=== PATIENT | female | born 1950 | race Caucasian/White ===

== ENCOUNTER 2017-08-30 12:15 | Emergency (ER) | payer MEDICARE, SELFPAY ==
[2017-08-30 12:17] VITALS: BP 156/94; PULSE 89; RESP 16; TEMP 36.3; O2SAT 95; BMI 37.3
--- NOTE | 2017-08-30 12:29 | EKG12_ITS ---
Test Reason : SOB Blood Pressure : / mmHG Vent. Rate : 082 BPM Atrial Rate : 082 BPM P-R Int : 148 ms QRS Dur : 088 ms QT Int : 390 ms P-R-T Axes : 049 030 078 degrees QTc Int : 455 ms Normal sinus rhythm Normal ECG Confirmed by YANET DORANTES MD ([id number]), newspaper or periodical editor XOCHITL SCHULER ([id number]) on 09/03/2017 3:51:04 PM Referred By: GRACE Confirmed By:YANET DORANTES MD
--- NOTE | 2017-08-30 12:41 | ED.DCSUM_ITS ---
- ER Visit Summary Date of Service: 08/30/17 Chief Complaint: [] Sick for a week vomiting coughing now just coughing partially History of Present Illness: The patient is a 67 F [] vomiting and coughing about a week ago the vomiting has stopped but she is persistent having a harsh dry cough and rhinorrhea she has asthma, she has been using her Symbicort but not her rescue inhaler. She has no history of RI PE or DVT she presents complaining of the harsh nature of the cough and fatigue, she has not had a flu vaccination she has not been tested for the flu her bowel bladder habits are otherwise unremarkable. Her diabetes is well-controlled she was able to eat today without difficulty she noticed occasional diarrhea Physical Examination: [] She has a rhinorrhea and a harsh cough she is in no distress otherwise her lungs reveal wheezing all areas the heart tones are distant abdomen is obese nontender upper lower extremities unremarkable neurologically she is awake moving all 4 Test Results: [] Emergency Department Course and Treatment: [] Evaluation revealed, generally unremarkable chest x-ray and labs EKG see those reports. On reevaluation she is resting much more comfortably at this time she feels stable for discharge, she will be given a Proventil inhaler to use in addition to her Symbicort, she is given Tylenol 3 to use at bedtime for rest Mucinex use every 12 hours and she will follow with her family doctor return for change in symptoms, please note her flu screen was negative but we did discuss the concept that she could still have the flu as the flu screen was not very sensitive Treatment Plan: [] Disposition: [] Home stable Impression: [] URI with harsh cough This note was generated with [employer], IP dictation software. It may contain incorrect words, spelling, and punctuation that were not noted in review of the chart prior to signing ED Disposition - Plan for ED Patient: Chief Complaint: Cough Referrals: Yoan Cavanaugh Chi, MD [Primary Care Provider] -
[2017-08-30] MEDS: Ipratropium/Albuterol Sulfate 3 ML AMPUL.NEB INHALATION (12:47)
[2017-08-30 12:49] VITALS: PULSE 90; RESP 16
--- NOTE | 2017-08-30 12:50 | RAD_ITS ---
STUDY: X-RAY CHEST REASON FOR EXAM: Female, 67 years old. 10 day history of generalized illness. TECHNIQUE: Single AP portable view of the chest. COMPARISON: Comparison is made with prior study dated July 24, 2013. FINDINGS: EKG electrodes are seen. Stable mild degree of increased markings at the lung bases suggestive of the linear scarring. Hyperinflation. There is no demonstrated pleural abnormality. Normal size heart. Normal mediastinum and zachariah. Normal visualized pulmonary arteries. There is atherosclerotic tortuosity of the aortic arch and descending thoracic aorta. There are diffuse degenerative changes of the visualized thoracic spine. Normal visualized ribs, clavicles, and shoulders. There is no demonstrated abnormality of the visualized soft tissue structures of the upper abdomen. RAD/Chest 1 View (Portable) IMPRESSION: Stable increased markings at the lung bases suggestive of scarring. Electronically Signed: Yuval Amador MD at 13:41 EST Tel [phone], Service support ,
[2017-08-30 12:52] LABS: Absolute Lymphocyte Count 1.57 X10^3/ul (0.83-4.51); Absolute Neutrophil Count 3.1 X10^3/uL (2.0-7.7); Basophil# 0.01 X10^3/uL; Basophil% 0.2 % (0-1); Eosinophil# 0.11 X10^3/uL; Eosinophils% 2.2 % (0-5); Hematocrit 42.3 % (37-47); Hemoglobin 13.4 g/dl (12.0-15.0); Lymphocyte # 1.57 X10^3/ul (4.0); Lymphocyte % 30.9 % (19-41); Mean Corp Hgb Conc 31.7 g/gl (32-36); Mean Corpuscular Hgb 28.6 pg (27.0-32.0); Mean Corpuscular Volume 90.4 fL (81-99); Mean Platelet Vol. 9.4 fl (6.2-12.0); Monocyte# 0.29 X10^3/uL; Monocyte% 5.7 % (0-10); Neutrophil # 3.08 X10^3/uL (2.7-7.7); Neutrophil % 60.6 % (47-70); Platelet Count 246 K/mm3 (150-450); RBC Distribution Width CV 14.1 % (11.6-14.6); RBC Distribution Width SD 46.3 fl (35.1-43.9); Red Blood Count 4.68 M/mm3 (4.2-5.4); White Blood Count 5.1 K/mm3 (4.4-11.0)
[2017-08-30 12:55] LABS: POSITIVE COUNT NO; POSITIVE DIFFERENTIAL NO; POSITIVE MORPHOLOGY NO
[2017-08-30 12:59] VITALS: BP 142/79; PULSE 84; RESP 24; O2SAT 95
[2017-08-30 13:07] LABS: Anion Gap 9 (5-15); BUN 12 mg/dL (7-18); BUN/Creat Ratio 15.5 RATIO (10-20); Calcium,Total 9.4 mg/dL (8.5-10.1); Chloride 103 mmol/L (98-107); Creatinine, Serum 0.78 mg/dL (0.55-1.02); EST Glomerular Filtration Rate 79 mL/min (>60); Est Glom Filt Rate - Afr Amer 96 mL/min (>60); Estimated Creatinine Clearance 67.31 ml/min; Glucose 178 mg/dL (70-110); Potassium 3.9 mmol/L (3.5-5.1); Sodium Level 140 mmol/L (136-145)
[2017-08-30 13:23] LABS: BNP,B-Type NATRIURETIC PEPTIDE 9.4 pg/mL (0-100)
--- NOTE | 2017-08-30 13:55 | ED.DEP ---
ED Disposition - Plan for ED Patient: Chief Complaint: Cough Instructions: ED Flu, ED Bronchitis Asthmatic Prescriptions: Albuterol Inhaler [Ventolin Hfa] 1 - 2 puff INHALATION Q4H PRN PRN #1 inhaler PRN Reason: Wheezing Guaifenesin/Dextromethorphan [Mucinex Dm ER 1,200-60 mg Tab] 1 ea PO BID #14 tab.er.12h Acetaminophen/Codeine #3 [Tylenol #3 Tablet] 1 - 2 tab PO Q6H PRN #12 tab PRN Reason: Pain Referrals: Yoan Cavanaugh Chi, MD [Primary Care Provider] -
[2017-08-30 14:12] VITALS: BP 143/75; PULSE 84; RESP 20; O2SAT 94
== END 2017-08-30 14:15 | disposition home or self-care (01) ==
PROVIDERS: Emergency Provider Emergency Medicine; Family Provider Family Medicine Geriatric Medicine; PCP Family Medicine Geriatric Medicine
DX: J06.9 Acute upper respiratory infection, unspecified (principal); R05 Cough; J44.9 Chronic obstructive pulmonary disease, unspecified; R06.2 Wheezing; E11.9 Type 2 diabetes mellitus without complications; Z79.84 Long term (current) use of oral hypoglycemic drugs
CPT/HCPCS: 71045; 80048; 83880; 84484; 85025; 87804; 93005; 94640; 99284; A4216

== ENCOUNTER → 2017-10-16 13:09 | Outpatient (CLI) | payer MEDICARE, SELFPAY ==
--- NOTE | 2017-10-16 13:11 | HPBD_ITS ---
STUDY: DUAL ENERGY X-RAY ABSORPTIOMETRY / DXA REASON FOR EXAM: Female, 67 years old. The patient is postmenopausal. Loss of height. TECHNIQUE: Bone Mineral Density (BMD) measurements of lumbar spine and right hip were obtained. COMPARISON: Comparison is made with prior study dated March 03, 2014. FINDINGS: Lumbar Spine (L1-L4): g/cm2 (1.143) / T-score (-0.2) / Z-score (1.4) Findings are suggestive of normal bone density with a low fracture risk. Right Femur Total: g/cm2 (1.173) / T-score (1.3) / Z-score (2.5) Right Femoral Neck: g/cm2 (1.042) / T-score (0.0) / Z-score (1.5) The T-Scores on the most recent prior examination were: Lumbar Spine (L1-L4): There has been worsening of bone density since the previous examination. Right Femur Total: which represents a worsening of 1.8%. HPBD/Dexa Bone Density Study (HP) IMPRESSION: The patient is considered normal as outlined below according to World [employer] Organization (WHO) criteria with a low fracture risk. There has been worsening of bone density since the previous examination. Reference Information: The T-score is the number of standard deviations above or below the standard which is normal for young adults at their peak bone mineral density. The World Health Organization (WHO) interprets the T-scores as follows: Above -1 Normal bone density Between -1 and -2.5 Osteopenia Equal to / or below -2.5 Osteoporosis As a practical clinical guideline, osteopenia may be graded as follows: Mild -1 through -1.5 Moderate -1.6 through -2.0 Severe -2.1 through -2.4 The Z-score is the number of standard deviations above or below age-matched controls. A Z-score of less than -1.5 would be considered abnormal. References: 1. NIH Osteoporosis and Related Bone Diseases http://www.osteo.org 2. International Society for Clinical Densitometry http://www.iscd.org 3. National Osteoporosis Foundation http://www.nof.org Electronically Signed: Yuval Amador MD at 14:30 EDT Tel [phone], Service support ,
--- NOTE | 2017-10-16 13:11 | HPBI_ITS ---
MAMMOGRAPHY - BILATERAL SCREENING REASON FOR EXAM: Female, 67 years old. Routine annual screening examination. PERTINENT HISTORY: Grandmother with breast cancer. Remote left excisional breast biopsies. TECHNIQUE: Digital bilateral breast valente (3D mammographic acquisition) in the CC and MLO projections. 2-D mediolateral oblique (MLO) and craniocaudad (CC) views of both breasts were obtained. CAD: Full Field Digital Mammography with Computer Added Detection was performed. COMPARISON: Comparison is made with prior examination dated March 29, 2016 and March 03, 2014. FINDINGS: Breast Composition: There are scattered areas of fibroglandular density. There are no dominant masses or suspicious calcifications. No other significant abnormalities are identified. There has been no significant change since the prior study. HPBI/SCREENING MAMM (CAD), BILAT IMPRESSION: Stable bilateral screening mammogram. Yearly follow-up mammogram recommended. (A) ASSESSMENT CATEGORY: BIRADS Category 1: Negative. A letter regarding these results will be sent to the patient by the facility within 30 days. Approximately 10% of breast cancers are not detected by mammography. A normal mammogram should not delay biopsy of a clinically suspicious abnormality. [id number] Electronically Signed: Yuval Amador MD at 15:16 EDT Tel [phone], Service support ,
== END ==
PROVIDERS: Family Provider Family Medicine Geriatric Medicine; PCP Family Medicine Geriatric Medicine; Visit Provider Family Medicine Geriatric Medicine
DX: Z78.0 Asymptomatic menopausal state (principal); Z12.31 Encounter for screening mammogram for malignant neoplasm of breast
CPT/HCPCS: 77063; 77067; 77080

== ENCOUNTER → 2018-09-13 10:58 | Outpatient (CLI) | payer MEDICARE, SELFPAY ==
[2018-09-13 12:46] LABS: Absolute Lymphocyte Count 1.81 X10^3/ul (0.83-4.51); Absolute Neutrophil Count 3.8 X10^3/uL (2.0-7.7); Basophil# 0.03 X10^3/uL; Basophil% 0.5 % (0-1); Eosinophil# 0.11 X10^3/uL; Eosinophils% 1.8 % (0-5); Hematocrit 41.8 % (37-47); Hemoglobin 13.2 g/dl (12.0-15.0); Lymphocyte # 1.81 X10^3/ul (4.0); Lymphocyte % 29.3 % (19-41); Mean Corp Hgb Conc 31.6 g/gl (32-36); Mean Corpuscular Hgb 29.3 pg (27.0-32.0); Mean Corpuscular Volume 92.9 fL (81-99); Mean Platelet Vol. 9.6 fl (6.2-12.0); Monocyte# 0.41 X10^3/uL; Monocyte% 6.6 % (0-10); Neutrophil # 3.81 X10^3/uL (2.7-7.7); Neutrophil % 61.6 % (47-70); Platelet Count 266 K/mm3 (150-450); RBC Distribution Width CV 13.8 % (11.6-14.6); White Blood Count 6.2 K/mm3 (4.4-11.0)
[2018-09-13 12:47] LABS: POSITIVE COUNT NO; POSITIVE DIFFERENTIAL NO; POSITIVE MORPHOLOGY NO
[2018-09-13 13:01] LABS: Vitamin D,25 Hydroxy 34.4 ng/mL (29.95-100.01)
[2018-09-13 13:08] LABS: ALB/GLOB Ratio 0.9 RATIO (0.9-2.4); AST(SGOT) 17 U/L (15-37); Alanine Aminotransfer ALT/SGPT 24 U/L (13-56); Albumin, Serum 3.6 g/dL (3.2-5.0); Alkaline Phosphatase 79 U/L (45-117); Anion Gap 9 (5-15); BUN 16 mg/dL (7-18); BUN/Creat Ratio 20.2 RATIO (10-20); Calcium,Total 9.1 mg/dL (8.5-10.1); Chloride 105 mmol/L (98-107); Cholesterol 145 mg/dL (200); Creatinine, Serum 0.79 mg/dL (0.55-1.02); EST Glomerular Filtration Rate 77 mL/min (>60); Est Glom Filt Rate - Afr Amer 93 mL/min (>60); Globulin 4.1 g/dL (2.2-4.2); Glucose 124 mg/dL (74-106); High Density Lipoprotein 49 mg/dL; Potassium 4.2 mmol/L (3.5-5.1); Protein, Total 7.7 g/dL (6.4-8.2); Sodium Level 140 mmol/L (136-145); Thyroid Stim Hormone (TSH) 1.63 uIU/mL (0.358-3.74); Triglycerides 113 mg/dL; Uric Acid 5.8 mg/dL (2.6-6.0); Very Low Density Lipoprotein 23 mg/dL (5-40)
== END ==
PROVIDERS: Family Provider Family Medicine Geriatric Medicine; PCP Family Medicine Geriatric Medicine; Visit Provider Family Medicine Geriatric Medicine
DX: E11.9 Type 2 diabetes mellitus without complications (principal); E55.9 Vitamin D deficiency, unspecified; E78.49 Other hyperlipidemia; I10 Essential (primary) hypertension; M10.9 Gout, unspecified
CPT/HCPCS: 36415; 80053; 80061; 82306; 84443; 84550; 85025

== ENCOUNTER → 2019-04-21 14:31 | Outpatient (CLI) | payer MEDICARE, SELFPAY ==
--- NOTE | 2019-04-21 14:39 | BI_ITS ---
MAMMOGRAPHY - BILATERAL SCREENING REASON FOR EXAM: Female, 68 years old. Routine annual screening examination. PERTINENT HISTORY: Grandmother with breast cancer. Remote left excisional breast biopsies. TECHNIQUE: Digital bilateral breast joe (3D mammographic acquisition) in the CC and MLO projections. 2-D mediolateral oblique (MLO) and craniocaudad (CC) views of both breasts were obtained. CAD: Full Field Digital Mammography with Computer Added Detection was performed. COMPARISON: Comparison is made with prior study dated October 16, 2017 and March 29, 2016. FINDINGS: Breast Composition: There are scattered areas of fibroglandular density. There are no dominant masses or suspicious calcifications. Stable small benign-appearing bilateral axillary lymph nodes. No other significant abnormalities are identified. There has been no significant change since the prior study. BI/SCREEN MAMM (CAD) W/JOE BILAT IMPRESSION: Stable bilateral screening mammogram. Yearly follow-up mammogram recommended. (A) ASSESSMENT CATEGORY: BIRADS Category 2: Benign. A letter regarding these results will be sent to the patient by the facility within 30 days. Approximately 10% of breast cancers are not detected by mammography. A normal mammogram should not delay biopsy of a clinically suspicious abnormality. [id number] Electronically Signed: Yuval Amador, at 8:21 EDT , Service support ,
== END ==
PROVIDERS: Family Provider Family Medicine Geriatric Medicine; PCP Family Medicine Geriatric Medicine; Referring Provider Family Medicine Geriatric Medicine; Visit Provider Family Medicine Geriatric Medicine
DX: Z12.31 Encounter for screening mammogram for malignant neoplasm of breast (principal); Z80.3 Family history of malignant neoplasm of breast
CPT/HCPCS: 77063; 77067

== ENCOUNTER → 2020-03-24 14:18 | Outpatient (CLI) | payer MEDICARE, SELFPAY ==
[2020-03-25 07:29] LABS: SARS-COV-2 TOTAL ABS Nonreactive (Nonreactive)
== END ==
PROVIDERS: PCP Family Medicine Geriatric Medicine; Referring Provider Family Medicine Geriatric Medicine; Visit Provider Family Medicine Geriatric Medicine
DX: R05 Cough (principal)
CPT/HCPCS: 36415; 86769

== ENCOUNTER → 2020-09-23 15:15 | Outpatient (CLI) | payer MEDICARE, SELFPAY | PROVIDERS: PCP Family Medicine Geriatric Medicine; Referring Provider Family Medicine Geriatric Medicine; Visit Provider Family Medicine Geriatric Medicine | DX: R68.83 Chills (without fever) (principal) | CPT/HCPCS: 87635; C9803; U0005; U0003 ==

== ENCOUNTER 2020-10-12 11:42 | Outpatient (RCR) | payer MEDICARE, SELFPAY ==
[2020-10-12] MEDS: COVID-19 VACC, MRNA(PFIZER)/PF 30 MCG/0.3 ML SYRINGE IM (14:29)
[2020-11-02] MEDS: COVID-19 VACC, MRNA(PFIZER)/PF 30 MCG/0.3 ML SYRINGE IM (14:46)
== END 2021-01-04 23:59 ==
LOC: IMMUN 11:42
PROVIDERS: PCP Family Medicine Geriatric Medicine; Visit Provider Family Medicine
DX: Z23 Encounter for immunization (principal)
CPT/HCPCS: 0001A; 0002A; 91300

== ENCOUNTER → 2021-04-13 12:11 | Outpatient (CLI) | payer MEDICARE, SELFPAY ==
--- NOTE | 2021-04-13 12:13 | BI_ITS ---
MAMMOGRAPHY - BILATERAL SCREENING REASON FOR EXAM: Female, 70 years old. Routine annual screening examination. PERTINENT HISTORY: Grandmother with breast cancer. TECHNIQUE: Digital bilateral breast joe (3D mammographic acquisition) in the CC and MLO projections. 2-D mediolateral oblique (MLO) and craniocaudad (CC) views of both breasts were obtained. CAD: Full Field Digital Mammography with Computer Added Detection was performed. COMPARISON: Comparison is made with prior study dated 04/21/2019 and 10/16/2017. FINDINGS: Breast Composition: There are scattered areas of fibroglandular density. There are no dominant masses or suspicious calcifications. Stable small benign appearing bilateral axillary No other significant abnormalities are identified. There has been no significant change since the prior study. BI/SCRN MAMM (CAD)W/JOE BILAT IMPRESSION: Stable bilateral screening mammogram. Yearly follow-up mammogram recommended. (A) ASSESSMENT CATEGORY: BIRADS Category 2: Benign. A letter regarding these results will be sent to the patient by the facility within 30 days. Approximately 10% of breast cancers are not detected by mammography. A normal mammogram should not delay biopsy of a clinically suspicious abnormality. [id number] Electronically Signed: Yuval Amador MD at 13:00 EDT , Service support ,
== END ==
PROVIDERS: PCP Family Medicine Geriatric Medicine; Referring Provider Family Medicine Geriatric Medicine; Visit Provider Family Medicine Geriatric Medicine
DX: Z12.31 Encounter for screening mammogram for malignant neoplasm of breast (principal)
CPT/HCPCS: 77063; 77067

== ENCOUNTER 2021-09-28 14:37 | Outpatient (CLI) | payer MEDICARE, SELFPAY ==
--- NOTE | 2021-09-28 14:41 | RAD_ITS ---
STUDY: X-RAY - PELVIS AND RIGHT HIP REASON FOR EXAM: Female, 71 years old. HIP PAIN TECHNIQUE: XR Hip Unilateral with Pelvis when performed; 2-3 Views COMPARISON: None. FINDINGS: There is a non-specific bowel gas pattern. Normal visualized soft tissue structures. There are degenerative changes of the lumbar spine. Normal bilateral iliac wings, sacroiliac joints and visualized sacrum. Normal bilateral superior and inferior pubic rami. Normal pubic symphysis. Normal bilateral ischial tuberosities. RIGHT: There are osteoarthritic changes of the femoral head with marginal osteophyte formation. There is cortical sclerosis with sub-cortical cyst formation of the acetabulum. There is moderate articular joint space narrowing of the hip. LEFT: Total left hip arthroplasty. RAD/HIP, UNI W/ Pelvis 2-3 Views IMPRESSION: Degenerative findings of the right hip. Electronically Signed: Suresh Cantu MD at 18:46 EST ,
== END 2021-09-28 23:59 | disposition home or self-care (01) ==
LOC: RAD 14:40
PROVIDERS: PCP Family Medicine Geriatric Medicine; Referring Provider Family Medicine Geriatric Medicine; Visit Provider Family Medicine Geriatric Medicine
DX: M16.11 Unilateral primary osteoarthritis, right hip (principal)
CPT/HCPCS: 73502

== ENCOUNTER → 2023-06-11 | Outpatient (CLI) | payer MEDICARE, SELFPAY ==
--- NOTE | 2023-06-11 14:43 | BI_ITS ---
MAMMOGRAPHY - BILATERAL SCREENING REASON FOR EXAM: Female, 72 years old. Routine annual screening examination. PERTINENT HISTORY: Grandmother with breast cancer. Prior excisional left breast biopsy. TECHNIQUE: Digital bilateral breast joe (3D mammographic acquisition) in the CC and MLO projections. 2-D mediolateral oblique (MLO) and craniocaudad (CC) views of both breasts were obtained. CAD: Full Field Digital Mammography with Computer Added Detection was performed. COMPARISON: Comparison is made with prior study July 13, 2021 and April 21, 2019. FINDINGS: Breast Composition: There are scattered areas of fibroglandular density. There are no dominant masses or suspicious calcifications. Stable small benign appearing bilateral axillary lymph nodes. No other significant abnormalities are identified. There has been no significant change since the prior study. BI/SCRN MAMM (CAD)W/JOE BILAT IMPRESSION: Stable bilateral screening mammogram. Yearly follow-up mammogram recommended. (A) ASSESSMENT CATEGORY: BIRADS Category 2: Benign. A letter regarding these results will be sent to the patient by the facility within 30 days. Approximately 10% of breast cancers are not detected by mammography. A normal mammogram should not delay biopsy of a clinically suspicious abnormality. [id number] Electronically Signed: Yuval Amador MD at 15:30 EST ,
== END | disposition home or self-care (01) ==
PROVIDERS: PCP Family Medicine Geriatric Medicine; Referring Provider Family Medicine Geriatric Medicine; Visit Provider Family Medicine Geriatric Medicine
DX: Z12.31 Encounter for screening mammogram for malignant neoplasm of breast (principal)
CPT/HCPCS: 77063; 77067

== ENCOUNTER 2023-08-29 17:30 | Emergency (ER) | payer MEDICARE, SELFPAY ==
[2023-08-29 17:33] VITALS: BP 131/69; PULSE 90; RESP 20; TEMP 36.9; O2SAT 95; BMI 33.0
--- NOTE | 2023-08-29 18:49 | EDS_ITS ---
HPI History of Present Illness Chief Complaint: General Illness Informant: patient and spouse/S.O. Narrative Narrative: Presents to the ED after discussing with nursing at her PCP office. Apparently had mechanical fall 17 days ago seen at outside hospital formerly [facility] states had head scan had stitches. She called about the stitches and was told she need to go ER to get it taken out as there is no upcoming appointments in the PCP office. In addition complains of congestion for the past 3 days had a fever of 102. Mild sore throat. No headaches or myalgias. No urinary symptoms. She also states since the fall 17 days with developed upper back pain that was not there initially. Denies dyspnea or any chest pains. [facility] Medical History History of endometrial cancer Left shoulder pain Primary osteoarthritis, left shoulder Home Medications atorvastatin 40 mg tablet 40 mg PO QHS 08/30/17 [History Last Taken Unknown] sitagliptin phosphate 50 mg-metformin 1,000 mg tablet (Janumet) 1 tab PO BID 08/30/17 [History Last Taken Unknown] epinephrine 0.3 mg/0.3 mL injection, auto-injector 0.3 ml IM PRN 04/19/23 [History Last Taken Unknown] fluticasone furoate 100 mcg-vilanterol 25 mcg/dose inhalation powder (Breo Ellipta) 1 inh inhalation 04/19/23 [History Last Taken Unknown] semaglutide 0.25 mg or 0.5 mg (2 mg/3 mL) subcutaneous pen injector (Ozempic) 0.25 mg subcut 04/19/23 [History Last Taken Unknown] sertraline 100 mg tablet mg PO 04/19/23 [History Last Taken Unknown] Allergy/AdvReac Type Severity Reaction Status Date / Time codeine AdvReac Nausea/Vom/ Verified 08/29/23 17:33 Diarrhea procaine [From Novocain] AdvReac Other Verified 08/29/23 17:33 Surgical History History of arthroscopy of right shoulder History of removal of cyst History of total bilateral knee replacement History of total left hip arthroplasty Hx of breast lump removal Hx of cataract extraction Hx of section Hx of cholecystectomy Hx of hysterectomy Hx of nasal septoplasty Social History Smoking Status: Never smoker ROS ROS ED Constitutional Constitutional ED: Reports fever(s); Denies chills or sweats Eyes Eyes: Denies change in vision ENT ENT ED: Reports sore throat and other Details: Congestion ; Denies dysphagia Cardiovascular Cardiovascular: Denies chest pain, leg edema, palpitations or racing heartbeat Respiratory/Chest Respiratory/Chest: Denies cough, dyspnea or dyspnea on exertion Gastrointestinal Gastrointestinal: Denies abdominal pain, diarrhea, nausea or vomiting Genitourinary Genitourinary ED: Denies dysuria, hematuria or urinary frequency Musculoskeletal Musculoskeletal: Denies back pain, extremity pain or neck pain Integumentary Denies rash or wounds Neurologic Neurologic: Denies headache(s), paresthesias or weakness EXAM Physical Exam Const Vital Signs: 08/29/23 17:33 08/29/23 19:01 08/29/23 20:31 Temperature 98.5 F Temperature Source Temporal Pulse Rate 90 108 H Respiratory Rate 20 H 17 Respiratory Effort Short of Breath Respiratory Pattern Normal Blood Pressure 131/69 H 110/88 H Blood Pressure Mean 89 95 Pulse Ox 95 93 Oxygen Delivery Method Room Air Room Air 08/29/23 20:31 Temperature Temperature Source Pulse Rate 105 H Respiratory Rate 19 H Respiratory Effort Respiratory Pattern Blood Pressure 110/88 H Blood Pressure Mean 95 Pulse Ox 93 Oxygen Delivery Method Positive well nourished and well developed General Appearance ED: well developed and NAD HEENT Reports moist mucous membranes HEENT Narrative: Posterior crown, there was scabbing appears to have Vicryl sutures that broken off during exam. No other clear sutures present. Posterior pharyngeal erythema tonsils absent. No trismus. normocephalic Eyes PERRL, EOMs intact bilaterally and conjunctivae normal General Eye ED: Yes normal appearance of both eyes Neck no lymphadenopathy and supple General: Negative for tenderness Chest Wall Chest: Negative for tenderness Resp normal respiratory effort and normal air movement Effort and Inspection: symmetric chest movement; Negative for respiratory distress Cardio regular rate, regular rhythm and no murmurs Peripheral Pulses: pulses 2+ throughout GI normal to inspection, nondistended, normoactive bowel sounds and non-tender Palpation: Negative for guarding or rebound tenderness present Back/Spine no CVA tenderness and no thoracic nor lumbar tenderness Extremity normal to inspection General Extremety ED: Negative for edema or tenderness General Extremity: Negative for edema Neuro oriented x3 and no sensory deficits noted Sensorium / Orientation: awake and alert Skin no rashes or lesions noted and no wounds MDM MDM MDM Narrative Medical decision making narrative: Interventions / MDM: Differential diagnosis: Viral syndrome, contusion Diagnosis considered but do not suspect: Fracture however x-ray negative. No clinical pneumonia. My EKG interpretation: N/A Imaging independently reviewed and interpreted by myself: Three-view x-ray thoracic spine: No fracture. Also read by radiology. External documents reviewed: Outside health since her evaluation through [facility], she had plain gut observable sutures placed in running fashion. Her CT brain was negative. Test considered but not ordered:N/A ED course: Patient upper thoracic pain shortly after her fall. No imagings were performed. X-ray thoracic spine obtained. Reported fever 3 days ago with sinus congestion. No cough or concerns of pneumonia. COVID flu and influenza sent for evaluation. Strep also ordered for further evaluation. Image studies negative. Nasal swab is positive for COVID. Day 4 of symptoms, I discussed option for Paxlovid however discussed study showing no benefits with new strains. Shared decision making she declines as she has only sinus congestion. Discussed monitor for respiratory symptoms for return. Otherwise symptomatic treatment and outpatient follow-up. Re-evaluation: stable Disposition discussed with patient/family/significant other: Patient and significant other Case discussed with consulting clinician: N/A This note was generated with [employer] dictation software. It may contain incorrect words, spelling, and punctuation that were not noted in checking the note before signing. Radiography Diagnostic Testing: Clinical Impression(s) from Imaging Studies Thoracic Spine X-Ray 08/29/23 19:00 IMPRESSION: Degenerative change. Electronically Signed: Moisés Paris MD at 19:13 EST , Discharge Plan Triage Chief Complaint: General Illness ED Provider: Zack Proctor Dx/Rx/DC Orders Clinical Impression: COVID-19, Visit for wound check, Back contusion Instructions: Coronavirus Disease 2019 (COVID-19): Caring for Yourself or Others, ED Back Contusion Prescriptions: No Action fluticasone furoate-vilanterol [Breo Ellipta] 100-25 mcg/dose blister with device 1 inh inhalation Ozempic 0.25 mg or 0.5 mg (2 mg/3 mL) pen injector 0.25 mg subcut sertraline 100 mg tablet PO epinephrine 0.3 mg/0.3 mL auto-injector 0.3 ml IM PRN Patient Comments: Inject one syringe in the outer thigh as needed for allergic reaction atorvastatin 40 MG tablet 40 mg PO QHS sitagliptin phos-metformin [Janumet] 1 EACH tablet 1 tab PO BID Patient Comments: Primary Care Provider: Yoan Cavanaugh Chi Referrals: Yoan Cavanaugh Chi, MD [Primary Care Provider] - 1 Week Activity Restrictions/Additional Instructions: Thoracic x-rays are negative. Reviewing records you had dissolvable sutures on your scalp. Testing for COVID positive today with your congestion. Symptomatic treatment as discussed. Follow-up with your doctor. If you develop worsening respiratory symptoms, return to the ED for reevaluation. Disposition Disposition: Home, Self Care Discharge Date/Time: 08/29/23 20:33
--- NOTE | 2023-08-29 19:00 | RAD_ITS ---
STUDY: X-RAY - THORACIC SPINE REASON FOR EXAM: Female, 73 years old. Injury TECHNIQUE: 3 view(s) of the thoracic spine were obtained. COMPARISON: None. FINDINGS: Normal kyphosis of the thoracic spine. There is no substantial scoliosis. There is multilevel endplate spondylosis of the thoracic vertebrae. There is multilevel disc space narrowing of the thoracic spine. There is no fracture seen. The soft tissue structures are unremarkable. RAD/Thoracic Spine 3 Views IMPRESSION: Degenerative change. Electronically Signed: Moisés Paris MD at 19:13 EST ,
--- OUTSIDE RECORDS SUMMARY | 2023-08-29 19:10 | XMS RPT_ITS | CCD ---
Author Name Unknown Address [address] [place] [address] Organization [facility] Care Team Providers Care Interactive Art Director Name Role Phone Unavailable Primary Care Provider Km CAVANAUGH MD, DR AGUILLON Primary Care Physician TED LOPES, DR AGUILLON Attending Unavailable TED LOPES, DR AGUILLON Primary Care Unavailable TED LOPES, DR AGUILLON Attending Unavailable TED LOPES, DR AGUILLON Primary Care Unavailable Ted LOPES, Seble Primary Care Provider NICK VERMA Referring Unavailable SEBLE CAVANAUGH Primary Care Unavailable NICK VERMA Attending Unavailable SEBLE CAVANAUGH Primary Care Unavailable Allergies Allergy Classification Reported Allergen(s) Allergy Type Date of Onset Reaction(s) Facility Opioid Agonists (1 source) oxyCODONE Drug Allergy 02-16-2021 [facility] (1 source) Codeine; Translations: [codeine] Drug Allergy DIARRHEA [facility] Medications Current Medications Medication Drug Class(es) Dates Sig (Normalized) Sig (Original) atorvastatin 40 mg oral tablet (3 sources) HMG-CoA Reductase Inhibitor Start: 07-25-2023 atorvastatin (Lipitor) 40 MG tablet BORAGE, FISH, FLAX OIL (1 source) Start: 10-16-2007 BORAGE, FISH, FLAX OIL BORAGE, FISH, FLAX OIL, See Instructions, 0, 1 TABLET PO BID Start Date: 10/16/07 Status: Ordered Osteo Bi-Flex (1 source) Start: 10-16-2007 Osteo Bi-Flex See Instructions, 0, 0, ONE TABLET PO TID Start Date: 10/16/07 Status: Ordered CINNULIN (1 source) Start: 10-16-2007 CINNULIN CINNULIN, See Instructions, 0, ONE TABLET PO BID Start Date: 10/16/07 Status: Ordered CURCUMIN PLUS (1 source) Start: 10-16-2007 CURCUMIN PLUS CURCUMIN PLUS, See Instructions, 0, ONE TABLET PO BID Start Date: 10/16/07 Status: Ordered [id number] 0.3 ml EPINEPHrine 1 mg/ml auto-injector (1 source) alpha-Adrenergic Agonist, beta-Adrenergic Agonist, Catecholamine Start: 02-16-2021 EPINEPHrine (EPIPEN 2-MECHE) 0.3 MG/0.3ML SOAJ injection Use as directed for allergic reaction 2 each 2 02/16/2021 Active 2 ml famotidine 10 mg/ml injection (3 sources) Histamine-2 Receptor Antagonist Start: 02-16-2021 famotidine (PEPCID) injection 40 mg Completed/Discontinued Medications Medication Drug Class(es) Dates Sig (Normalized) Sig (Original) bacitracin 0.5 unt/mg topical ointment (2 sources) Start: 4 End: 4 bacitracin ointment 1 ml diphenhydrAMINE hydrochloride 50 mg/ml cartridge (1 source) Histamine-1 Receptor Antagonist Start: 1 End: 1 diphenhydrAMINE (BENADRYL) injection 25 mg fluticasone / salmeterol (1 source) Corticosteroid, beta2-Adrenergic Agonist Start: 8 Advair Diskus 250 mcg-50 mcg inhalation powder 1 puff(s), Inhalation, BID, 0, 0 Start Date: 10/16/07 Status: Ordered 10 ml lidocaine hydrochloride 10 mg/ml injection (2 sources) Antiarrhythmic, Amide Local Anesthetic Start: 4 End: 4 lidocaine (Xylocaine) 1 % injection 10 mL methylPREDNISolone 125 mg injection (1 source) Corticosteroid Start: 1 End: 1 methylPREDNISolone sodium (SOLU-MEDROL) injection 125 mg Singulair (1 source) Leukotriene Receptor Antagonist Start: 8 Singulair 10 mg, PO, qPM, 0, 0 Start Date: 10/16/07 Status: Ordered Multiple Vitamins oral tablet (1 source) Start: 8 Multiple Vitamins oral tablet 1 tab(s), PO, Daily, 0, 0 Start Date: 10/16/07 Status: Ordered prednisoLONE acetate 10 mg/ml ophthalmic suspension (1 source) Corticosteroid Start: 8 prednisoLONE acetate 1% ophthalmic suspension 1 drop(s), Eye, right, BID, 0, 0 Start Date: 10/16/07 Status: Ordered 50 ml sodium chloride 9 mg/ml injection (1 source) Start: 1 End: 1 0.9 % sodium chloride bolus Problems Problem Classification Problem Date Documented Da te Episodic/Chronic Allergic reactions (1 source) Anaphylaxis; Translations: [Anaphylactic shock, unspecified, initial encounter] Episodic Open wounds of head; neck; and trunk (4 sources) Scalp laceration; Translations: [Laceration without foreign body of scalp, initial encounter] Onset: 08-12-2023 08-12-2023 Episodic Other injuries and conditions due to external causes (2 sources) Injury of head; Translations: [Unspecified injury of head, initial encounter] 08-12-2023 Episodic Other injuries and conditions due to external causes (2 sources) Unspecified injury of head, initial encounter; Translations: [Unspecified injury of head, initial encounter] Onset: 08-12-2023 Episodic Poisoning by nonmedicinal substances (1 source) Bee sting; Translations: [Toxic effect of venom of bees, undetermined, initial encounter] Episodic Unclassified (1 source) DRY LEFT EYE( Confirmed ) Onset: 07-30-2005 10-16-2007 Results Test Name Value Interpretation Reference Range Facil ity Vital Signs Date Time Vital Sign Value Performing Clinician Faci lity 08-12-2023 16:19-0500 Body temperature 97.59 [degF] Nick Verma MD Work Phone: [employer] 08-12-2023 16:19-0500 Diastolic blood pressure 100 mm[Hg] Nick Verma MD Work Phone: [employer] 08-12-2023 16:19-0500 Heart rate 100 /min Nick Verma MD Work Phone: [employer] [facility] 08-12-2023 16:19-0500 Respiratory rate 14 /min Nick Verma MD Work Phone: [employer] 08-12-2023 16:19-0500 SaO2% (BldA) [Mass fraction] 96 % Nick Verma MD Work Phone: [facility] 08-12-2023 16:19-0500 Systolic blood pressure 148 mm[Hg] Nick Verma MD Work Phone: [facility] 02-16-2021 17:58-0400 Diastolic blood pressure 70 mm[Hg] Dale Ines DO Work Phone: [employer] Work Phone: 02-16-2021 17:58-0400 Heart rate 80 /min Dale Ines DO Work Phone: [employer] Work Phone: 02-16-2021 17:58-0400 Respiratory rate 12 /min Dale Ines DO Work Phone: [employer] Work Phone: 02-16-2021 17:58-0400 SaO2% (BldA) [Mass fraction] 100 % Dale Ines DO Work Phone: [employer] Work Phone: 02-16-2021 17:58-0400 Systolic blood pressure 131 mm[Hg] Dale Ines DO [facility] Phone: [facility] Work Phone: 02-16-2021 16:24-0400 Body temperature 98.01 [degF] Dale Ines DO Work Phone: [facility] Work Phone: Encounters Encounter Date Encounter Type Care Provider Facility Start: 08-12-2023 End: 08-13-2023 Emergency department patient visit NICK CRURYSOWMYA [facility] Start: 08-12-2023 End: 08-12-2023 Subsequent hospital visit by physician [facility] Exam Room [address] [facility] [address] Procedures Date Procedure Procedure Detail Performing Clinician Start: 08-12-2023 Ct head/brain w/o co ntrast material Nick Verma MD Work Phone: Start: 08-12-2023 PB ED PLACEHOLDER Juve Verma MD Work Phone: Start: 06-11-2023 Mammography Nick padron MD Work Phone: Plan of Treatment Date Care Activity Detail Author Start: 06-11-2024 Screening for malign ant neoplasm of breast Mammogram [facility] Start: 03-30-2023 COVID-19 Vaccine ( season) COVID-19 Vaccine ( season) [facility] Start: 03-30-2021 Influenza vaccination Flu vaccine (# 1) [facility] Work Phone: Start: 02-18-2021 DTaP/Tdap/Td Vaccine s (1 - Tdap) DTaP/Tdap/Td Vaccines (1 - Tdap) [facility] Start: 04-15-2013 Pneumococcal Vaccine : 65+ Years (2 of 2 - PPSV23 or PCV20) Pneumococcal Vaccine: 65+ Years (2 of 2 - PPSV23 or PCV20) [facility] Start: 2012 RSV Immunization age d 60 or older (1 - 1-dose 60+ series) RSV Immunization aged 60 or older (1 - 1-dose 60+ series) [facility] Start: 1970 Hepatitis C screening Hepatitis C Sc reening [facility] Start: 1964 Depression Screening Depression Scre ening [facility] Start: 1962 Diabetic foot examination Diabetes: Foot Exam [facility] Start: 1962 Glaucoma screening Diabetes: R etinopathy Screening [facility] Start: 1962 Preventive dental service Diabetes: Dental Exam [facility] Start: 1952 Hemoglobin A1c measurement Diabetes: Hemoglobin A1C [facility] Start: 1952 Lipid panel Lipid Panel [facility] Start: 1950 Medicare Advantage A nnual Wellness Visit (AWV) Medicare Advantage Annual Wellness Visit (AWV) [facility] Start: 1950 Screening for malign ant neoplasm of colon [facility] Start: 1952 Screening for osteoporosis Bone Density Scan [facility] Payers Date Payer Category Payer Medicare [employer] MEDICARE ADVANTAGE [employer] MEDICARE [id number] 2022-Present [address] [address] [place] [address] Medicare HMO [id number] 2022 Medicare [id number] 2022 Self-pay Unknown [id number] Unknown [id number] Social History Date Type Detail Facility Start: 02-16-2021 Tobacco smoking stat [facility] Never smoker [employer] Work Phone: Start: 02-16-2021 End: 08-12-2023 Alcohol intake Lifetime non-drinker (finding) [facility] Work Phone: Start: 02-16-2021 History SDOH Alcohol Frequency 1 [employer] Work Phone: Start: 1950 Sex Assigned At Not on file [facility] [employer] Work Phone: Exposure to SARS-CoV -2 (event) Not sure [facility] Tobacco smoking status [facility] Start: 08-12-2023 History of Social function [facility] Start: 08-12-2023 Tobacco use panel [facility] Clinical Notes 02-16-2021 to 08-12-2023 Discharge InstructionsAttachmentsMia Horowitz RN - 08/12/2023 4:05 PM Billy Verma MD - 08/12/2023 4:05 PM Kortney Horowitz RN - 08/12/2023 4:05 PM ESTInstructionsAttachments Note Date & Type Note Facility 08-12-2023 Hospital Discharg e instructions Nick Verma MD - 08/12/2023 5:15 PM EST Tylenol as needed for pain. Sutures will dissolve. The following attachments cannot be sent through Care Everywhere.Laceration Repair With Stitches ED ([place])Closed Head Injury Discharge Instructions ([place])documented in this encounter [facility] 08-12-2023 Emergency department Note Sutures placed by physician. Pt tolerated well. Mai Horowitz RN 08/12/23 1719 [facility] 08-12-2023 Emergency department Note Associated Order(s): Laceration Repair EMERGENCY DEPARTMENT ENCOUNTER Pt Name: Ceci Christopher Birthdate 1950 Date of evaluation: 08/12/2023 ED Provider: Nick Verma MD CHIEF COMPLAINT Chief Complaint Patient presents with Head Injury History from patient and HISTORY OF PRESENT ILLNESS (Location/Symptom, Timing/Onset, Context/Setting, Quality, Duration, Modifying Factors, Severity) Note limiting factors. I wore appropriate PPE for the entirety of this encounter. HPI Ceci Christopher is a 73 y.o. who presents to the emergency department complaining of scalp laceration. Patient states she was walking up the stairs when she tripped and fell backward into a picture frame. 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 No loss of consciousness. Not on blood thinners. No new difficulty moving arms or legs. Happened within the last hour. Acting like herself. States that she also hit her head 1 week ago and has been confused since then. Nursing Notes were reviewed. Limitations to history: None Outside historians: Family REVIEW OF SYSTEMS Review of Systems Constitutional: Negative for fever. Eyes: Negative for visual disturbance. Respiratory: Negative for shortness of breath. Cardiovascular: Negative for chest pain. Gastrointestinal: Negative for abdominal pain. Genitourinary: Negative for difficulty urinating. Musculoskeletal: Negative for back pain, neck pain and neck stiffness. Skin: Positive for wound. Negative for rash. Neurological: Negative for dizziness, tremors, seizures, syncope, facial asymmetry, speech difficulty, weakness, light-headedness, numbness and headaches. Psychiatric/Behavioral: Negative for confusion and self-injury. Pertinent positives and negatives as per HPI PAST MEDICAL HISTORY History reviewed. No pertinent past medical history. SURGICAL HISTORY History reviewed. No pertinent surgical history. CURRENT MEDICATIONS Previous Medications ATORVASTATIN (LIPITOR) 40 MG TABLET JANUMET 50-1000 MG TABLET SERTRALINE (ZOLOFT) 100 MG TABLET ALLERGIES Patient has no known allergies. FAMILY HISTORY No family history on file. SOCIAL HISTORY Social History Socioeconomic History Marital status: Tobacco Use Smoking status: Never Substance and Sexual Activity Alcohol use: Never Drug use: Never SCREENINGS PHYSICAL EXAM ED Triage Vitals Temp Pulse Resp BP -- -- -- -- SpO2 Temp src Heart Rate Source Patient Position -- -- -- -- BP Location FiO2 (%) -- -- Physical Exam Constitutional: Appearance: Normal appearance. Eyes: Extraocular Movements: Extraocular movements intact. Conjunctiva/sclera: Conjunctivae normal. Pupils: Pupils are equal, round, and reactive to light. Neck: Vascular: No carotid bruit. Cardiovascular: Rate and Rhythm: Normal rate and regular rhythm. Heart sounds: Normal heart sounds. Pulmonary: Effort: Pulmonary effort is normal. Breath sounds: No wheezing or rhonchi. Abdominal: Palpations: Abdomen is soft. Tenderness: There is no abdominal tenderness. Musculoskeletal: General: No deformity. Normal range of motion. Cervical back: Normal range of motion and neck supple. No rigidity or tenderness. Lymphadenopathy: Cervical: No cervical adenopathy. Skin: General: Skin is warm and dry. Capillary Refill: Capillary refill takes less than 2 seconds. Neurological: General: No focal deficit present. Mental Status: She is alert. Cranial Nerves: No cranial nerve deficit. Sensory: No sensory deficit. Motor: No weakness. Coordination: Coordination normal. Gait: Gait normal. Deep Tendon Reflexes: Reflexes normal. Ambulatory Oriented x 3 GCS 15 3 cm occipital laceration without skull involvement and without contamination No spinal tenderness Stable chest and pelvis No long bone deformity No focal neurologic deficit DIAGNOSTIC RESULTS RADIOLOGY (Per Emergency Physician): Head CT - no acute bleed or fracture Interpretation per the Radiologist below, if available at the time of this note: CT head wo IV contrast Final Result Unremarkable noncontrast CT of the brain. Report Dictated on Electronically Signed By: Deion Becerra MD Electronically Signed Date/Time: 08/12/2023 4:50 PM EST EMERGENCY DEPARTMENT COURSE and DIFFERENTIAL DIAGNOSIS/MDM: Vitals: Vitals: 08/12/23 1619 BP: (!) 148/100 BP Location: Right arm Patient Position: Lying Pulse: 100 Resp: 14 Temp: 36.4 C (97.6 F) TempSrc: Oral SpO2: 96% Medications lidocaine (Xylocaine) 1 % injection 10 mL (has no administration in time range) bacitracin ointment (has no administration in time range) Medical Decision Making and ED Course The patient presented with a chief complaint of scalp laceration post fall. The differential diagnosis associated with this patient's presentation includes skull fracture subdural hematoma epidural hematoma cervical spine fracture. Our workup consisted of ordering/reviewing history physical examination and CT imaging. CT imaging was ordered primarily because the patient had another injury recently and there is a possibility of both an acute or chronic hematoma . Imaging showed no evidence of intracerebral bleed. She has no focal neurologic deficit. She is at baseline mental status. Her wound was repaired. Head injury and wound instructions reviewed. Patient agrees with symptomatic treatment and PCP follow-up as an outpatient. Her tetanus immunization is up-to-date Diagnostic tests and medications considered but not ordered: CT cervical spine not indicated because patient has no tenderness no distracting injury no focal neurologic deficit and intact mental status meets Nexus criteria for clearing her spine. 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 PROCEDURES Unless otherwise noted below, none Laceration Repair Performed by: Nick Verma MD Authorized by: Nick Verma MD Consent: Consent obtained: Verbal Consent given by: Patient Risks, benefits, and alternatives were discussed: yes Risks discussed: Infection, need for additional repair, nerve damage, poor wound healing, poor cosmetic result, pain, retained foreign body, tendon damage and vascular damage Alternatives discussed: No treatment [place] protocol: Procedure explained and questions answered to patient or proxy's satisfaction: yes Patient identity confirmed: Verbally with patient Anesthesia: Anesthesia method: Local infiltration Local anesthetic: Lidocaine 1% w/o epi Laceration details: Location: Scalp Scalp location: Occipital Length (cm): 3 Depth (mm): 5 Exploration: Wound extent: no areolar tissue violation noted, no fascia violation noted, no foreign bodies/material noted, no muscle damage noted, no nerve damage noted, no tendon damage noted, no underlying fracture noted and no vascular damage noted Contaminated: no Treatment: Area cleansed with: Soap and water Amount of cleaning: Standard Irrigation solution: Tap water Skin repair: Repair method: Sutures Suture size: 3-0 Suture material: Plain gut Suture technique: Running Approximation: Approximation: Close Post-procedure details: Dressing: Open (no dressing) Procedure completion: Tolerated well, no immediate complications FINAL IMPRESSION 1. Head injury, initial encounter 2. Laceration of scalp, initial encounter DISPOSITION Discharge 08/12/2023 05:14:33 PM PATIENT REFERRED TO: Seble Cavanaugh MD [address] [id number] as previously scheduled DISCHARGE MEDICATIONS: New Prescriptions No medications on file (Comment: Please note this report has been produced using speech recognition software and may contain errors related to that system including errors in grammar, punctuation, and spelling, as well as words and phrases that may be inappropriate. If there are any questions or concerns please feel free to contact the dictating provider for clarification.) Nick Verma MD (electronically signed) Emergency Medicine Provider Nick Verma MD 08/12/23 1738 Pt ambulatory to room 2 with c/o head injury after falling down steps and hitting head on glass picture frame. Pt denies any LOC at time of occurrence. There is small hematoma noted with small laceration that is cleaned with saline upon arrival with bleeding controlled. Sutures placed by physician. Pt tolerated well. Mai Horowitz RN 08/12/23 1719 documented in this encounter [facility] 08-12-2023 Emergency department Triage note Pt ambulatory to room 2 with c/o head injury after falling down steps and hitting head on glass picture frame. Pt denies any LOC at time of occurrence. There is small hematoma noted with small laceration that is cleaned with saline upon arrival with bleeding controlled. [facility] 08-12-2023 Physician Emergency department Note Associated Order(s): Laceration Repair EMERGENCY DEPARTMENT ENCOUNTER Pt Name: Ceci Christopher Birthdate 1950 Date of evaluation: 08/12/2023 ED Provider: Nick Verma MD CHIEF COMPLAINT Chief Complaint Patient presents with Head Injury History from patient and HISTORY OF PRESENT ILLNESS (Location/Symptom, Timing/Onset, Context/Setting, Quality, Duration, Modifying Factors, Severity) Note limiting factors. I wore appropriate PPE for the entirety of this encounter. HPI Ceci Christopher is a 73 y.o. who presents to the emergency department complaining of scalp laceration. Patient states she was walking up the stairs when she tripped and fell backward into a picture frame. 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 No loss of consciousness. Not on blood thinners. No new difficulty moving arms or legs. Happened within the last hour. Acting like herself. States that she also hit her head 1 week ago and has been confused since then. Nursing Notes were reviewed. Limitations to history: None Outside historians: Family REVIEW OF SYSTEMS Review of Systems Constitutional: Negative for fever. Eyes: Negative for visual disturbance. Respiratory: Negative for shortness of breath. Cardiovascular: Negative for chest pain. Gastrointestinal: Negative for abdominal pain. Genitourinary: Negative for difficulty urinating. Musculoskeletal: Negative for back pain, neck pain and neck stiffness. Skin: Positive for wound. Negative for rash. Neurological: Negative for dizziness, tremors, seizures, syncope, facial asymmetry, speech difficulty, weakness, light-headedness, numbness and headaches. Psychiatric/Behavioral: Negative for confusion and self-injury. Pertinent positives and negatives as per HPI PAST MEDICAL HISTORY History reviewed. No pertinent past medical history. SURGICAL HISTORY History reviewed. No pertinent surgical history. CURRENT MEDICATIONS Previous Medications ATORVASTATIN (LIPITOR) 40 MG TABLET JANUMET 50-1000 MG TABLET SERTRALINE (ZOLOFT) 100 MG TABLET ALLERGIES Patient has no known allergies. FAMILY HISTORY No family history on file. SOCIAL HISTORY Social History Socioeconomic History Marital status: Tobacco Use Smoking status: Never Substance and Sexual Activity Alcohol use: Never Drug use: Never SCREENINGS PHYSICAL EXAM ED Triage Vitals Temp Pulse Resp BP -- -- -- -- SpO2 Temp src Heart Rate Source Patient Position -- -- -- -- BP Location FiO2 (%) -- -- Physical Exam Constitutional: Appearance: Normal appearance. Eyes: Extraocular Movements: Extraocular movements intact. Conjunctiva/sclera: Conjunctivae normal. Pupils: Pupils are equal, round, and reactive to light. Neck: Vascular: No carotid bruit. Cardiovascular: Rate and Rhythm: Normal rate and regular rhythm. Heart sounds: Normal heart sounds. Pulmonary: Effort: Pulmonary effort is normal. Breath sounds: No wheezing or rhonchi. Abdominal: Palpations: Abdomen is soft. Tenderness: There is no abdominal tenderness. Musculoskeletal: General: No deformity. Normal range of motion. Cervical back: Normal range of motion and neck supple. No rigidity or tenderness. Lymphadenopathy: Cervical: No cervical adenopathy. Skin: General: Skin is warm and dry. Capillary Refill: Capillary refill takes less than 2 seconds. Neurological: General: No focal deficit present. Mental Status: She is alert. Cranial Nerves: No cranial nerve deficit. Sensory: No sensory deficit. Motor: No weakness. Coordination: Coordination normal. Gait: Gait normal. Deep Tendon Reflexes: Reflexes normal. Ambulatory Oriented x 3 GCS 15 3 cm occipital laceration without skull involvement and without contamination No spinal tenderness Stable chest and pelvis No long bone deformity No focal neurologic deficit DIAGNOSTIC RESULTS RADIOLOGY (Per Emergency Physician): Head CT - no acute bleed or fracture Interpretation per the Radiologist below, if available at the time of this note: CT head wo IV contrast Final Result Unremarkable noncontrast CT of the brain. Report Dictated on Electronically Signed By: Deion Becerra MD Electronically Signed Date/Time: 08/12/2023 4:50 PM EST EMERGENCY DEPARTMENT COURSE and DIFFERENTIAL DIAGNOSIS/MDM: Vitals: Vitals: 08/12/23 1619 BP: (!) 148/100 BP Location: Right arm Patient Position: Lying Pulse: 100 Resp: 14 Temp: 36.4 C (97.6 F) TempSrc: Oral SpO2: 96% Medications lidocaine (Xylocaine) 1 % injection 10 mL (has no administration in time range) bacitracin ointment (has no administration in time range) Medical Decision Making and ED Course The patient presented with a chief complaint of scalp laceration post fall. The differential diagnosis associated with this patient's presentation includes skull fracture subdural hematoma epidural hematoma cervical spine fracture. Our workup consisted of ordering/reviewing history physical examination and CT imaging. CT imaging was ordered primarily because the patient had another injury recently and there is a possibility of both an acute or chronic hematoma . Imaging showed no evidence of intracerebral bleed. She has no focal neurologic deficit. She is at baseline mental status. Her wound was repaired. Head injury and wound instructions reviewed. Patient agrees with symptomatic treatment and PCP follow-up as an outpatient. Her tetanus immunization is up-to-date Diagnostic tests and medications considered but not ordered: CT cervical spine not indicated because patient has no tenderness no distracting injury no focal neurologic deficit and intact mental status meets Nexus criteria for clearing her spine. 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 PROCEDURES Unless otherwise noted below, none Laceration Repair Performed by: Nick Verma MD Authorized by: Nick Verma MD Consent: Consent obtained: Verbal Consent given by: Patient Risks, benefits, and alternatives were discussed: yes Risks discussed: Infection, need for additional repair, nerve damage, poor wound healing, poor cosmetic result, pain, retained foreign body, tendon damage and vascular damage Alternatives discussed: No treatment [place] protocol: Procedure explained and questions answered to patient or proxy's satisfaction: yes Patient identity confirmed: Verbally with patient Anesthesia: Anesthesia method: Local infiltration Local anesthetic: Lidocaine 1% w/o epi Laceration details: Location: Scalp Scalp location: Occipital Length (cm): 3 Depth (mm): 5 Exploration: Wound extent: no areolar tissue violation noted, no fascia violation noted, no foreign bodies/material noted, no muscle damage noted, no nerve damage noted, no tendon damage noted, no underlying fracture noted and no vascular damage noted Contaminated: no Treatment: Area cleansed with: Soap and water Amount of cleaning: Standard Irrigation solution: Tap water Skin repair: Repair method: Sutures Suture size: 3-0 Suture material: Plain gut Suture technique: Running Approximation: Approximation: Close Post-procedure details: Dressing: Open (no dressing) Procedure completion: Tolerated well, no immediate complications FINAL IMPRESSION 1. Head injury, initial encounter 2. Laceration of scalp, initial encounter DISPOSITION Discharge 08/12/2023 05:14:33 PM PATIENT REFERRED TO: Seble Cavanaugh MD [address] [id number] as previously scheduled DISCHARGE MEDICATIONS: New Prescriptions No medications on file (Comment: Please note this report has been produced using speech recognition software and may contain errors related to that system including errors in grammar, punctuation, and spelling, as well as words and phrases that may be inappropriate. If there are any questions or concerns please feel free to contact the dictating provider for clarification.) Nick Verma MD (electronically signed) Emergency Medicine Provider Nick Verma MD 08/12/23 1738 [facility] 02-16-2021 Hospital Discharg e instructions InesDlae, DO - 02/16/2021 Return if any shortness of breath chest pain or any concerns. Carry EpiPen at all times. Return if any problems or concerns. The following attachments cannot be sent through Care Everywhere.Anaphylactic Reaction ([place])Video: How to Give Yourself an Epinephrine Shot ([place])documented in this encounter [facility] Work Phone: Evaluation + Plan note No data available for this section [facility] documented in this encounter [facility] Work Phone: Evaluation note* Diagnosis Head injury, initial encounter- Primary Laceration of scalp, initial encounter [facility] Dis[facility] instructions No data available for this section [facility] Progress note No data available for this section [facility] Summary Purpose Family History No Family History Records FoundNo Family History Records Found Advance Directives No Advanced Directives Records FoundNo Advanced Directives Records Found Additional Source Comments Reason for Visit (unrecogniz ed section and content) Reason Comments Head Injury Ordered Prescriptions (unrec ognized section and content) Scheduled Active and Recently Administ ered Medications (unrecognized section and content) No Frequency Medication Order 02/14/2021 02/15/2021 02/16/2021 famotidine (PEPCID) 20 MG/2ML injection Starting on Sun02/16/21 at 1647, For 1 dose, MAI PALMER: cabinet override 1647 (Due) Scheduled Medication Order 08/10/2023 08/11/2023 08/12/2023 bacitracin ointment (COMPLETED) Topical, Once, On 08/12/23 at 1625, For 1 dose 1625 (Given - Provid er: Mai Horowitz RN) lidocaine (Xylocaine) 1 % injection 10 mL (COMPLETED) 10 mL, Infiltration, Once, On 08/12/23 at 1625, For 1 dose 1625 (Given by Other - Provider: Mai Horowitz RN - Reason: Other) Care Team (unrecognized sect ion and content) Care Team Personnel Name: SEBLE CAVANAUGH MD Member Role: Primary Care Physician Address: Address: [facility] [place] [address]- Care Team Related Persons Name: RAFA CHRISTOPHER Address: Home [address] [place] [address] INFORMATION SOURCE (unrecogn ized section and content) DATE CREATED AUTHOR AUTHOR'S ORGANIZ ATION 08/13/2023 [facility] Care Teams (unrecognized sec tion and content) Interactive Art Director Relationship Specialty Start Date End Date Seble Cavanaugh MD [address] [place] [address] [address] [place] [id number] PCP - General Geriatric Medicine 08/12/23 FOR RECORDS PERTAINING TO PATIENTS WHO ARE OR HAVE BEEN ENROLLED IN A CHEMICAL DEPENDENCY/SUBSTANCEABUSE PROGRAM, SOME INFORMATION MAY BE OMITTED. This clinical summary was aggregated from multiple sources. Caution should be exercised in using it in the provision of clinical care. This summary normalizes information from multiple sources, and as a consequence, information in this document may materially change the coding, format and clinical context of patient data. In addition, data may be omitted in some cases. CLINICAL DECISIONS SHOULD BE BASED ON THE PRIMARY CLINICAL RECORDS. [facility]. provides no warranty or guarantee of the accuracy or completeness of information in this document.
[2023-08-29 20:31] VITALS: BP 110/88; PULSE 105; PULSE 108; RESP 17; RESP 19; O2SAT 93
== END 2023-08-29 20:33 | disposition home or self-care (01) ==
PROVIDERS: Emergency Provider Emergency Medicine; PCP Family Medicine Geriatric Medicine; Visit Provider Emergency Medicine
DX: U07.1 COVID-19 (principal); S20.229A Contusion of unspecified back wall of thorax, initial encounter; W18.30XA Fall on same level, unspecified, initial encounter; Z48.01 Encounter for change or removal of surgical wound dressing
CPT/HCPCS: 72072; 87631; 87651; 99284